=== PATIENT | female | born 1995 | race Caucasian/White ===

== ENCOUNTER 2016-12-11 19:35 | Emergency (ER) | payer OTHER ==
--- NOTE | 2016-12-11 19:56 | ER Document Report ---
ED Medical Screen (RME) - General Stated Complaint: MIGRAINE/VOMITING Notes: Acute on chronic migraine I greeted and performed a rapid initial assessment of this patient. Comprehensive ED assessment and evaluation of the patient, analysis of test results and completion of the medical decision making process will be conducted by additional ED providers. TRAVEL OUTSIDE OF THE [place] IN LAST 30 DAYS: No - Related Data Allergies/Adverse Reactions: aspirin [Aspirin] Allergy (Verified 12/02/15 15:08) hydrocodone bitartrate [From Vicodin] Allergy (Verified 07/01/15 02:32) NSAIDS (Non-Steroidal Anti-Inflamma [Nsaids] Allergy (Verified 12/02/15 15:08) Past Medical History Pulmonary Medical History: Reports: Hx Asthma Neurological Medical History: Reports: Hx Migraine Past Surgical History: Reports: Hx Adenoidectomy, Hx Myringotomy, Hx Tonsillectomy - Immunizations Hx Diphtheria, Pertussis, Tetanus Vaccination: Yes Physical Exam - Vital signs Vitals: Temp Resp BP Pulse Ox 97.9 F 18 117/64 94 12/11/16 19:41 12/11/16 19:41 12/11/16 19:41 12/11/16 19:41 Course - Vital Signs Vital signs: Temp Pulse Resp BP Pulse Ox 97.9 F 18 117/64 94 12/11/16 19:41 12/11/16 19:41 12/11/16 19:41 12/11/16 19:41
[2016-12-11] MEDS: NORMAL SALINE 1000 ML 1,000 ML IV PRN ×2 (20:15→21:35)
[2016-12-11] MEDS ORDERED: ONDANSETRON HCL INJ/PF 4 MG/2 ML SDV IV ONE (20:22)
--- NOTE | 2016-12-11 20:33 | ER Document Report ---
ED Headache - General Chief Complaint: Headache Stated Complaint: MIGRAINE/VOMITING Time seen by provider: 20:28 Mode of Arrival: Ambulatory Information source: Patient TRAVEL OUTSIDE OF THE [place] IN LAST 30 DAYS: No - HPI Patient complains to provider of: Headache, "Migraine" Patient reports: Frequent migraines, Hx chronic headaches Onset: This evening Onset was: Gradual Timing: Still present Quality of pain: Achy, Pressure Severity: Moderate Pain Level: 4 Associated symptoms: Nausea/vomiting, Photophobia Exacerbated by: Light Similar symptoms previously: Yes Recently seen / treated by doctor: No Notes: Patient is a 21-year-old female with a history of migraines, von Willebrand's disease and asthma, who presents to the emergency room complaining of a migraine headache with nausea and vomiting that started earlier today, patient is actually in the emergency room visiting her mother who is being seen for an upper respiratory illness, patient denies any fever, no head injury, no abdominal pain, no sick contacts other than her mother, no urinary symptoms, denies being , states she typically takes Maxalt when she is having a headache but did not bring any to the emergency room with her - Related Data Allergies/Adverse Reactions: aspirin [Aspirin] Allergy (Verified 12/02/15 15:08) hydrocodone bitartrate [From Vicodin] Allergy (Verified 07/01/15 02:32) NSAIDS (Non-Steroidal Anti-Inflamma [Nsaids] Allergy (Verified 12/02/15 15:08) Past Medical History - General Information source: Patient - Social History Smoking Status: Never Smoker Chew tobacco use (# tins/day): No Frequency of alcohol use: None Drug Abuse: None Family History: Reviewed & Not Pertinent Patient has suicidal ideation: No Patient has homicidal ideation: No Pulmonary Medical History: Reports: Hx Asthma Neurological Medical History: Reports: Hx Migraine Renal/ Medical History: Denies: Hx Peritoneal Dialysis Past Surgical History: Reports: Hx Adenoidectomy, Hx Myringotomy, Hx Tonsillectomy - Immunizations Hx Diphtheria, Pertussis, Tetanus Vaccination: Yes Review of Systems - Review of Systems Constitutional: No symptoms reported EENT: No symptoms reported Cardiovascular: No symptoms reported Respiratory: No symptoms reported Gastrointestinal: Nausea, Vomiting Genitourinary: No symptoms reported Female Genitourinary: No symptoms reported Musculoskeletal: No symptoms reported Skin: No symptoms reported Hematologic/Lymphatic: No symptoms reported Neurological/Psychological: Headaches -: Yes All other systems reviewed and negative Physical Exam - Vital signs Vitals: Temp Resp BP Pulse Ox 97.9 F 18 117/64 94 12/11/16 19:41 12/11/16 19:41 12/11/16 19:41 12/11/16 19:41 Interpretation: Normal - General General appearance: Alert In distress: None - Appears uncomfortable - HEENT Head: Normocephalic, Atraumatic Eyes: Normal Pupils: PERRL - Respiratory Respiratory status: No respiratory distress Chest status: Nontender Breath sounds: Normal Chest palpation: Normal - Cardiovascular Rhythm: Regular Heart sounds: Normal auscultation Murmur: No - Abdominal Inspection: Normal Distension: No distension Bowel sounds: Normal Tenderness: Nontender Organomegaly: No organomegaly - Back Back: Normal, Nontender - Extremities General upper extremity: Normal inspection, Nontender, Normal color, Normal ROM , Normal temperature General lower extremity: Normal inspection, Nontender, Normal color, Normal ROM , Normal temperature, Normal weight bearing. No: Rod's sign - Neurological Neuro grossly intact: Yes Cognition: Normal Orientation: AAOx4 Zamzam Coma Scale Eye Opening: Spontaneous Zamzam Coma Scale Verbal: Oriented Zamzam Coma Scale Motor: Obeys Commands [place] Coma Scale Total: 15 Speech: Normal Motor strength normal: LUE, RUE, LLE, RLE Sensory: Normal - Psychological Associated symptoms: Normal affect, Normal mood - Skin Skin Temperature: Warm Skin Moisture: Dry Skin Color: Normal Course - Re-evaluation Re-evalutation: 12/11/16 22:08 Patient reports feeling much better and ready to go home, she will be discharged with a Zofran dose pack and information for follow-up, advised to return if symptoms worsen, patient acknowledges understanding and agreement with this plan - Vital Signs Vital signs: Temp Pulse Resp BP Pulse Ox 97.9 F 18 117/64 94 12/11/16 19:41 12/11/16 19:41 12/11/16 19:41 12/11/16 19:41 Discharge - Discharge Clinical Impression: Migraine headache Qualifiers: Migraine type: unspecified Status migrainosus presence: without status migrainosus Intractability: not intractable Qualified Code(s): G43.909 - Migraine, unspecified, not intractable, without status migrainosus Condition: Stable Disposition: HOME, SELF-CARE Instructions: Antinausea Medication ([facility]), Headache ([facility]), Neurologist Additional Instructions: Follow up with your primary care provider in one to 2 days. Return to the emergency room immediately if symptoms worsen or any additional concerns.
[2016-12-11] MEDS ORDERED: NORMAL SALINE 1000 ML 1,000 ML IV PRN (21:40)
[2016-12-11] MEDS ORDERED: ONDANSETRON ODT 4 MG TAB (6 TAB/DSPK) PO PRN (22:08)
[2016-12-11 23:05] VITALS: BP 111/63
== END 2016-12-11 23:06 | disposition home or self-care (01) ==
LOC: ER 19:35
DX: G43.909 Migraine, unspecified, not intractable, without status migrainosus (principal); R11.2 Nausea with vomiting, unspecified; H53.149 Visual discomfort, unspecified; Z88.6 Allergy status to analgesic agent
CPT/HCPCS: 99283; 96361; 96374; J2405; J7030

== ENCOUNTER 2017-02-21 12:57 | Emergency (ER) | payer OTHER ==
[2017-02-21 13:04] VITALS: BP 122/76
--- NOTE | 2017-02-21 13:11 | ER Document Report ---
ED Medical Screen (RME) - General Stated Complaint: VOMITING Mode of Arrival: Medic Information source: Emergency Med Personnel Notes: Patient presents to the emergency department with A. fib started 2 hours ago and vomiting. EMS gave her ODT Zofran. Patient has a his history of migraines. Woke up with PETERSON. Did not take anything for the PETERSON. I have greeted and performed a rapid initial assessment of this patient. A comprehensive ED assessment and evaluation of the patient, analysis of test results and completion of the medical decision making process will be conducted by additional ED providers. TRAVEL OUTSIDE OF THE [place] IN LAST 30 DAYS: No - Related Data Allergies/Adverse Reactions: aspirin [Aspirin] Allergy (Verified 12/02/15 15:08) hydrocodone bitartrate [From Vicodin] Allergy (Verified 07/01/15 02:32) NSAIDS (Non-Steroidal Anti-Inflamma [Nsaids] Allergy (Verified 12/02/15 15:08) Past Medical History Pulmonary Medical History: Reports: Hx Asthma Neurological Medical History: Reports: Hx Migraine Renal/ Medical History: Denies: Hx Peritoneal Dialysis Past Surgical History: Reports: Hx Adenoidectomy, Hx Myringotomy, Hx Tonsillectomy - Immunizations Hx Diphtheria, Pertussis, Tetanus Vaccination: Yes Physical Exam - Vital signs Vitals: Temp Pulse Resp BP Pulse Ox 97.8 F 98 16 122/76 99 02/21/17 13:02 02/21/17 13:02 02/21/17 13:02 02/21/17 13:02 02/21/17 13:02 Course - Vital Signs Vital signs: Temp Pulse Resp BP Pulse Ox 97.8 F 98 16 122/76 99 02/21/17 13:02 02/21/17 13:02 02/21/17 13:02 02/21/17 13:02 02/21/17 13:02
== END 2017-02-21 15:57 | disposition left against medical advice (07) ==
LOC: ER 12:57
DX: I48.91 Unspecified atrial fibrillation (principal); R51 Headache; R11.10 Vomiting, unspecified; J45.909 Unspecified asthma, uncomplicated; Z88.6 Allergy status to analgesic agent
CPT/HCPCS: 99281